=== PATIENT | female | born 1945 | race Asian ===

== ENCOUNTER 2019-02-26 11:31 | Emergency (ER) | payer MEDICARE, OTHER ==
[~2019-02-26] VITALS: Ht 152.4 cm; Wt 60.0 kg
[2019-02-26] MEDS ORDERED: ONDANSETRON 2MG/ML, 2ML IVPush ONE (12:00)
[2019-02-26] MEDS ORDERED: SODIUM CHLORIDE FLUSH 10ML SYR IVF ONE (12:00)
[2019-02-26] MEDS ORDERED: IBUPROFEN 200 MG TABLET PO ONE (12:00)
[2019-02-26] MEDS ORDERED: MORPHINE SULFATE 4 MG/ML, 1ML IVPush PRN (12:00)
[2019-02-26] MEDS ORDERED: MORPHINE SULFATE 4 MG/ML, 1ML ONE (12:10)
[2019-02-26] MEDS ORDERED: ONDANSETRON 2MG/ML, 2ML ONE (12:10)
[2019-02-26] MEDS ORDERED: IBUPROFEN 200 MG TABLET ONE (12:11)
--- NOTE | 2019-02-26 12:18 | NUR ---
PT MED NOTED FOR BACK PAIN AND LOWER ABD PAIN. CALL LIGHT W/I REACH, AT BEDSIDE.
--- NOTE | 2019-02-26 12:19 | NUR ---
LATE ENTRY FOR 1205 PT AMBULATORY FROM [facility]. DR. GRANT AT BEDSIDE, PT ASSESSMENT REV, POC DISCUSSED AND QUESTIONS ANSWERED. PT OOB AND AMBULATED TO BATHROOM UPRIGHT STEADY GAIT, CLEAN CATCH URINE SAMPLE COLLECTED AND PT RTD TO ROOM W/O INCIDENT.
[2019-02-26 12:21] LABS: BASOPHILS # (AUTO) 0.02 x10^3/uL (0-0.1); BASOPHILS % (AUTO) 0 % (0-1); EOSINOPHILS # (AUTO) 0.18 x10^3/uL (0-0.4); EOSINOPHILS % (AUTO) 3 % (1-7); LYMPHOCYTES # (AUTO) 1.29 x10^3/uL (1-3.4); LYMPHOCYTES % (AUTO) 21 % (22-44); MD NO; MEAN CORPUSCULAR HEMOGLOBIN 28.3 pg (27.0-34.8); MEAN CORPUSCULAR HGB CONC 33.1 g/dL (32.4-35.8); MEAN CORPUSCULAR VOLUME 85.5 fL (80-100); MEAN PLATELET VOLUME 9.1 fL (7.4-10.4); MONOCYTES # (AUTO) 0.71 x10^3/uL (0.2-0.8); MONOCYTES % (AUTO) 12 % (2-9); NEUTROPHILS # (AUTO) 3.88 x10^3/uL (1.8-6.8); NEUTROPHILS % (AUTO) 64 % (42-75); PLATELET COUNT 138 x10^3/uL (130-400); RED BLOOD COUNT 4.61 x10^6/uL (3.82-5.3); RED CELL DISTRIBUTION WIDTH 13.4 % (9.6-15.2)
[2019-02-26 12:27] LABS: ALANINE AMINOTRANSFERASE 22 U/L (12-78); ALBUMIN 3.9 g/dL (3.4-5.0); ANION GAP 7 mmol/L (5-15); CALCIUM 8.9 mg/dL (8.5-10.1); CHLORIDE 100 mmol/L (98-107); CREATININE 1.22 mg/dL (0.55-1.02)
[2019-02-26 12:29] LABS: ALKALINE PHOSPHATASE 113 U/L (45-117); BILIRUBIN,TOTAL 0.3 mg/dL (0.2-1.0)
[2019-02-26 12:35] LABS: MICROSCOPIC NOT IND
[2019-02-26 12:43] LABS: CULTURE INDICATED? NO
--- NOTE | 2019-02-26 12:55 | NUR ---
VENKATESH AT BEDSIDE, ASSISTING WITH COMMUNICATION. PT REPORTS PAIN IN ALL ABD QUADS, BILATERAL FLANKS, AND LOWER BACK. VENKATESH REPORTS THE PT IS "VERY HEALTHY, SHE IS NORMALLY UP AND TAKING CARE OF THE FAMILY". NO SIGNS OF DISTRESS. VSS.
[2019-02-26] MEDS ORDERED: SODIUM CHLORIDE 0.9% 1,000ML IVBOLUS ONE (13:00)
[2019-02-26] MEDS ORDERED: OMNIPAQUE 350 MG/ML, 100ML BOTTLE ONE (13:23)
--- NOTE | 2019-02-26 13:56 | NUR ---
PT VERBALIZES PAIN "ONLY A LITTLE BIT" VSS. ALL TESTS RESULTED, CHART UP FOR RECHECK
--- NOTE | 2019-02-26 14:21 | NUR ---
PT TO MRI WITH TECH TRANSPORT. NAD NOTED.
--- NOTE | 2019-02-26 15:06 | NUR ---
VENKATESH AT BEDSIDE, HE SAYS "MOST LIKELY SHE WILL BE DC'D". NO ACUTE SIGNS OF DISTRESS.
--- NOTE | 2019-02-26 15:16 | NUR ---
CHART UP FOR RECHECK
[2019-02-26 15:57] VITALS: BP 142/55
--- NOTE | 2019-02-26 15:58 | NUR ---
Patient/Caregiver given discharge instructions and they have confirmed that they understand the instructions. Patient ambulatory with steady gait.
== END 2019-02-26 15:59 | disposition home or self-care (01) ==
LOC: ED 12:38
DX: M54.16 Radiculopathy, lumbar region (principal); R10.30 Lower abdominal pain, unspecified; R50.9 Fever, unspecified; I10 Essential (primary) hypertension
CPT/HCPCS: 36415; 71045; 72148; 74177; 80053; 81003; 83605; 84145; 85025; 87040; 96374; 96375; 99284; J2270; J2405; J7030; Q9967